=== PATIENT | female | born 1965 | race Two or more races ===

== ENCOUNTER 2019-10-17 22:00 | Emergency (ER) | payer OTHER ==
[~2019-10-17] VITALS: Ht 152.4 cm; Wt 86.2 kg
[2019-10-18] MEDS ORDERED: NAPROXEN500 MG PO (01:48)
== END 2019-10-18 02:10 | disposition home or self-care (01) ==
LOC: ER 22:00
DX: S40.012A Contusion of left shoulder, initial encounter (principal); S80.01XA Contusion of right knee, initial encounter; W10.8XXA Fall (on) (from) other stairs and steps, initial encounter; Y93.89 Activity, other specified; Y92.89 Other specified places as the place of occurrence of the external cause; Y99.8 Other external cause status